=== PATIENT | male | born 1995 | race Caucasian/White ===

== ENCOUNTER 2021-05-04 23:42 | Emergency (ER) | payer OTHER, SELFPAY ==
[2021-05-04 23:44] VITALS: BP 150/92; PULSE 124; RESP 18; TEMP 37.5; O2SAT 98; BMI 22.9
[2021-05-05 00:13] LABS: Basophils % 0.6 % (0.1-2.0); Eosinophils % 0.1 % (0.1-12.0); Lymphocytes # 1.1 K/mm3 (0.7-4.5); Lymphocytes % 18.6 % (10-50); Mean Corpuscular HGB Conc 36.4 g/dL (31.8-35.4); Mean Corpuscular Hemoglobin 30.9 pg (27.0-31.2); Mean Platelet Volume 8.7 fl (7.4-10.4); Monocytes # 0.3 K/mm3 (0.1-1.0); Monocytes % 5.6 % (1.7-9.3); Neutrophils # 4.4 K/mm3 (1.8-7.8); Neutrophils % 75.1 % (37.0-80.0); Platelet Count 191 K/mm3 (142-424); Red Blood Count 5.18 M/mm3 (4.60-6.20); Red Cell Distribution Width 12.2 % (11.5-17.5); White Blood Count 5.8 K/mm3 (4.8-10.8)
[2021-05-05 00:19] LABS: Alanine Aminotransferase 19 U/L (12-78); Albumin Level 4.8 g/dl (3.5-5.0); Albumin/Globulin Ratio 1.4 (1.1-1.8); Alkaline Phosphatase 56 U/L (38-126); Anion Gap 13.4 mEq/L (5-15); Aspartate Amino Transferase 35 U/L (17-59); Bilirubin,Total 0.9 mg/dl (0.2-1.3); Blood Urea Nitrogen 14 mg/dl (9-20); Calcium 8.4 mg/dl (8.4-10.2); Carbon Dioxide 31 mmol/L (22.0-30.0); Chloride 94 mmol/L (98-107); Creatinine Clearance Estimated 115 mL/min (50-200); Estimated Glomerular Filt Rate 90 ml/min (>60); GFR (African American) 109 ML/MIN (>60); Globulin 3.4 g/dL (1.3-3.2); Glucose 131 mg/dl (74-100); Potassium 3.4 mmoL/L (3.5-5.1); Sodium 135 mmol/L (136-145); Total Protein,Serum 8.2 g/dl (6.3-8.2)
[2021-05-05 00:24] LABS: C-Reactive Protein 40.7 mg/L (0-4)
[2021-05-05 00:38] LABS: Procalcitonin 0.123 ng/mL (0.0-2.0)
[2021-05-05 00:42] LABS: Strep Scrn Group A (Rapid) Negative (Negative)
[2021-05-05 00:49] LABS: Erythrocyte Sedimentation Rate 27 mm/hr (0-15)
[2021-05-05 00:51] LABS: Adenovirus,PCR Not Detected (NotDetected); Bordetella Pertussis Not Detected (NotDetected); Chlamydophila Pneumoniae, PCR Not Detected (NotDetected); Coronavirus 229E Not Detected (NotDetected); Coronavirus NL63 Not Detected (NotDetected); Coronavirus OC43 Not Detected (NotDetected); Coronovirus HKU1,PCR Not Detected (NotDetected); Human Metapneumovirus Not Detected (NotDetected); Influenza A, PCR Not Detected (NotDetected); Influenza AH1, 2009 Not Detected (NotDetected); Influenza AH1, PCR Not Detected (NotDetected); Influenza AH3,PCR Not Detected (NotDetected); Influenza B, PCR Not Detected (NotDetected); Mycoplasma Pneumoniae, PCR Not Detected (NotDetected); Parainfluenza 1, PCR Not Detected (NotDetected); Parainfluenza 2, PCR Not Detected (NotDetected); Parainfluenza 3, PCR Not Detected (NotDetected); Parainfluenza 4, PCR Not Detected (NotDetected); Respiratory Syncytial Virus Not Detected (NotDetected); Rhinovirus/Enterovirus Not Detected (NotDetected)
[2021-05-05 01:00] VITALS: BP 121/78; PULSE 103; O2SAT 97
[2021-05-05 01:08] LABS: Coronavirus 19, PCR Not Detected (NotDetected); Influenza A, PCR Not Detected (NotDetected); Influenza B, PCR Not Detected (NotDetected)
--- NOTE | 2021-05-05 01:51 | HMH.EDURI ---
ED Disposition Clinical Impression: Pharyngitis Qualifiers: Pharyngitis/tonsillitis etiology: unspecified etiology Qualified Code(s): J02.9 - Acute pharyngitis, unspecified Disposition: Home, Self-Care Condition on Discharge: Good Instructions: Sore Throat Additional Instructions: gargle and fluids and use meds Prescriptions: cephALEXin [cephALEXin 500mg capsule*] 500 mg PO TID #30 cap Transmission Status: Pending to [id number] Referrals: Provider,Referral, [Primary Care Provider] - - Critical Care Critical Care Time: No Attestation: On 05/04/21, the high probability of a clinically significant, sudden or life threatening deterioration of the following system(s) required my full and direct attention, intervention and personal management. The time I documented below is in addition to time spent performing reported procedures but includes the following listed in this critical care notation. Medical Decision Making - Medical Records Medical records reviewed: Yes: I reviewed the patient's medical records. - Ag Inquiry Pt receiving controlled substance: No Vital Signs: 05/04/21 23:44 05/05/21 01:00 Temperature 99.5 F Temperature Source Oral Pulse Rate 103 H Pulse Rate [Left Radial] 124 H Respiratory Rate 18 Blood Pressure 121/78 Blood Pressure [Right Arm] 150/92 H Blood Pressure Mean [Right Arm] 111 Blood Pressure Source Automatic Cuff Blood Pressure Position Supine Blood Pressure Position [Right Arm] Sitting 02 Sat by Pulse Oximetry 98 97 Oxygen Delivery Method Room Air Room Air - Lab Data Lab results reviewed: Yes: I reviewed the patient's lab results. Lab Results 05/05/21 00:00: WBC 5.8, RBC 5.18, Hgb 16.0, Hct 44.0, MCV 85.0, MCH 30.9, MCHC 36.4 H, RDW 12.2, Plt Count 191, MPV 8.7, Neut % (Auto) 75.1, Lymph % (Auto) 18.6, Payne % (Auto) 5.6, Eos % (Auto) 0.1, Baso % (Auto) 0.6, Neut # (Auto) 4.4, Lymph # (Auto) 1.1, Payne # (Auto) 0.3, Eos # (Auto) 0.0, Baso # (Auto) 0.0, ESR 27 H 05/05/21 00:00: Sodium 135 L, Potassium 3.4 L, Chloride 94 L, Carbon Dioxide 31 H, Anion Gap 13.4, BUN 14, Creatinine 1.00, Estimated Creat Clear 115, Estimated GFR 90, Est GFR ( Amer) 109, Glucose 131 H, Calcium 8.4, Total Bilirubin 0.9, AST 35, ALT 19, Alkaline Phosphatase 56, C-Reactive Protein 40.7 H, Total Protein 8.2, Albumin 4.8, Globulin 3.4 H, Albumin/Globulin Ratio 1.4, Procalcitonin 0.123 05/05/21 00:00: Lactate 1.0 05/05/21 00:00: Group A Strep Rapid Negative 05/05/21 00:45: SARS-CoV-2 (PCR) Not detected, Influenza A Untype (PCR) Not detected, Influenza Type B (PCR) Not detected Result diagrams: 05/05/21 00:00 05/05/21 00:00 Orders (Tests/Meds): ED MEDICATIONS Generic Name Dose Route Start Last Admin Trade Name Freq PRN Reason Stop Dose Admin Sodium Chloride 1,000 mls @ 999 mls/hr 05/05/21 00:15 05/05/21 00:09 Sod Chlor 0.9% 1000ml Bag IV 05/05/21 01:15 999 mls/hr .Q1H1M CARLOS EDUARDO Administration Ceftriaxone Sodium 1 gm/ 50 mls @ 100 mls/hr 05/05/21 02:00 Sodium Chloride IV 05/19/21 01:59 Q24H CARLOS EDUARDO Discontinued Medications Generic Name Dose Route Start Last Admin Trade Name Freq PRN Reason Stop Dose Admin Ketorolac Tromethamine 30 mg 05/05/21 01:36 05/05/21 01:38 Ketorolac 30mg/Ml Vial IV 05/05/21 01:37 30 mg ONCE ONE Administration Methylprednisolone Sodium Succinate 125 mg 05/05/21 00:05 05/05/21 00:08 Methylprednisolone Sod Succ 125mg Vial IV 05/05/21 00:06 125 mg ONCE ONE Administration ORDERS Category Date Time Status Respiratory Virus Panel, PCR [Upper Respiratory Panel, Lab 05/05/21 00:47 Received PCR] Stat Blood Culture Stat Micro 05/05/21 00:00 Received Strep Screen Confirmation Stat Micro 05/05/21 00:00 Received Medical Decision Narrative: acute pharyngitis URI/Sore Throat HPI - General Chief Complaint: Upper Respiratory Infection Stated Complaint: Sore throat,rash on chest
[2021-05-05 02:01] VITALS: BP 126/79; PULSE 109; RESP 20; TEMP 37.2; O2SAT 99
== END 2021-05-05 02:09 | disposition home or self-care (01) ==
PROVIDERS: Emergency Provider Emergency Medicine
DX: J02.9 Acute pharyngitis, unspecified (principal); R21 Rash and other nonspecific skin eruption; K02.9 Dental caries, unspecified
CPT/HCPCS: 80053; 83605; 84145; 85025; 85651; 86140; 87040; 87430; 87486; 87581; 87632; 87798; 96365; 96367; 96375; 99283; 99284; C9803; J0696; U0003; U0005

== ENCOUNTER 2023-02-12 15:51 | Emergency (ER) | payer OTHER, SELFPAY ==
--- NOTE | 2023-02-12 16:20 | EXP.UTC ---
Discharge Plan Disposition Patient Disposition: Home, Self-Care Condition: Good Prescriptions Prescriptions: New ibuprofen [IBU] 800 mg tablet 800 mg PO Q8HP PRN (Reason: Moderate Pain) Qty: 30 0RF amoxicillin-pot clavulanate 875-125 mg Tablet 1 tab PO Q12H Qty: 20 0RF Referrals Follow up/Referrals: Provider,Referral, [Primary Care Provider] - See instructions Activity Restrictions/Add. Instructions Additional Instructions/Restrictions: Take the medications as directed. Follow up with your regular doctor. You have to find a dentist to see NOEL. GO TO THE ER FOR ANY WORSENING SYMPTOMS Clinical Impressions Clinical Impression: Abscess, dental, Pain, dental Instructions Patient Instructions: DI for Tooth Abscess, Tooth Abscess, Ceftriaxone Injection Discharge ED Provider: James Villaseñor [place] HPI General Stated complaint: dental pain, facial swelling Time Seen by Provider: 02/12/23 16:20 History of Present Illness Provider Complaint: He states that he has had dental pain for the past 1 week. He is having swelling and redness around several of his teeth. Related Data Previous Rx's Medication Instructions Recorded amoxicillin 875 mg-potassium 1 tab PO Q12H #20 tabs 02/12/23 clavulanate 125 mg tablet ibuprofen 800 mg tablet (IBU) 800 mg PO Q8HP PRN Moderate Pain 02/12/23 #30 tabs Allergies Allergy/AdvReac Type Severity Reaction Status Date / Time No Known Allergies Allergy Verified 02/12/23 16:39 [facility] Disclaimer: The information contained in this section may have been updated after the patient was seen, as this information can be updated by other users. Social History Smoking Status: Never smoker alcohol intake: never current occupational status: unemployed Travel in the last 8 weeks: None ROS Obtained: Yes All systems reviewed & no additional complaints except as documented Constitutional Constitutional: Denies chills and Denies fever(s) Eyes Eyes: Denies eye discharge ENT Ears, Nose, Mouth, and Throat: Reports as per HPI, Denies dizziness, Denies otalgia and Denies sore throat Cardiovascular Cardiovascular: Denies chest pain Respiratory Respiratory: Denies shortness of breath, Denies chest congestion, Denies cough, Denies stridor and Denies wheezing Gastrointestinal Gastrointestingal: Denies nausea or vomiting Musculoskeletal Musculoskeletal: Reports system reviewed and no additional complaints, except as documented and Denies arthralgias Integumentary/Breasts Skin/Breast: Denies rash Neurologic Neurologic: Denies dizziness and Denies paresthesias Allergic/Immunologic Allergic/Immunologic: Denies wheezing Physical Exam General General appearance: alert and in no apparent distress Head Head exam: atraumatic, normocephalic and normal inspection Eye Eye exam: Present normal appearance, PERRL and EOMI ENT ENT exam: Present mucous membranes moist, TM's normal bilaterally and normal external ear exam Expanded ENT Exam Nose exam: Present sinus tenderness Nasal speculum exam: Bilateral: normal Mouth exam: Present normal external inspection; Absent drooling Teeth exam: Present dental caries, fractured tooth # and dental tenderness # Throat exam: Present normal inspection Neck Neck exam: Present normal inspection, full ROM and trachea midline; Absent meningismus or lymphadenopathy Chest Chest inspection: Present normal inspection and symmetric chest wall rise; Absent tenderness Respiratory Respiratory exam: Present normal lung sounds bilaterally; Absent respiratory distress Cardiovascular Cardiovascular exam: Present regular rate and normal rhythm; Absent JVD Abdominal Exam Abdominal exam: Present soft and normal bowel sounds; Absent distention, tenderness or guarding Extremities Exam Extremities exam: Present normal inspection, full ROM and normal capillary refill; Absent calf tenderness Back Exam Back exam: Present normal inspection; Absent tend
[2023-02-12 16:30] VITALS: BP 152/93; PULSE 125; RESP 18; TEMP 37.2; O2SAT 100; BMI 23.7
[2023-02-12 17:24] VITALS: BP 152/93; PULSE 125; RESP 18; TEMP 37.2; O2SAT 100
== END 2023-02-12 17:24 | disposition home or self-care (01) ==
PROVIDERS: Emergency Provider Nurse Practitioner Family
DX: K04.7 Periapical abscess without sinus (principal); K08.89 Other specified disorders of teeth and supporting structures; R22.0 Localized swelling, mass and lump, head
CPT/HCPCS: 96372; 99204; 99212; G0463; J0696